=== PATIENT | male | born 1950 | race American Indian/Alaskan Native ===

== ENCOUNTER 2019-08-27 12:50 | Emergency (ER) | payer MEDICARE, OTHER ==
[2019-08-27] MEDS ORDERED: ALUM-MAG HYDROX-SIMETH 200-200-20MG/5ML PO STA (13:13)
[2019-08-27] MEDS ORDERED: LIDOCAINE VISCOUS 2% PO STA (13:13)
[2019-08-27] MEDS ORDERED: BANOPHEN PO STA (13:13)
--- NOTE | 2019-08-27 13:13 | Emergency Department Report ---
Blank Doc - Documentation Documentation: 69 y/o male c/o "chest fullness" associated with belching, heartburn and nausea. Discomfort radiates to back. he spoke to the ID medical advice line and was advised to come to the ER for evaluation. his initial assessment/diagnostic orders/clinical plan/treatment(s) is/are panchal bject to change based on patient's health status, clinical progression and re- assessment by fellow clinical providers in the ED. Further treatment and workup at subsequent clinical providers discretion. Patient/guardians urged not to elope from the ED as their condition may be serious if not clinically assessed and managed. Initial orders include: Labs, ekg and cxr. Gi cocktail
[2019-08-27] MEDS ORDERED: PEPCID PO ONE (13:32)
--- NOTE | 2019-08-27 13:33 | Emergency Department Report ---
ED Chest Pain HPI - General Chief Complaint: Chest Pain Stated Complaint: CHEST PAIN/BELCH ABNORMAL Time Seen by Provider: 08/27/19 13:11 Source: patient Mode of arrival: Ambulatory Limitations: No Limitations - History of Present Illness Initial Comments: 69 yo well appearing AA male to ER with co epigastric burning into chest for 24 hours. He states he has been belching alot and his OTC meds have not worked. He took an antacid. The pain is burning in nature. No diaphoresis or nausea. He has no sob. He is ambulating without SOB. PMH prostate enlargement htn previous smoker home meds lisinopril prostate meds omeprazole mom and dad dec ? cause years ago. psh colonoscopy 2 w ago- normal Pt has no hx CAD or CVA His usual care is from [place] - Related Data Home Medications Medication Instructions Recorded Confirmed Last Taken Finasteride 5 mg PO QDAY 08/27/19 08/27/19 08/23/19 Lisinopril [Zestril] 20 mg PO QDAY 08/27/19 08/27/19 08/23/19 Omeprazole 20 mg PO DAILY 08/27/19 08/27/19 08/26/19 20 Tamsulosin [Flomax] 0.4 mg PO QDAY 08/27/19 08/27/19 08/26/19 amLODIPine [Norvasc] 10 mg PO DAILY 08/27/19 08/27/19 08/26/19 Allergies Allergy/AdvReac Type Severity Reaction Status Date / Time No Known Allergies Allergy Verified 08/27/19 12:51 Heart Score - HEART Score History: Slightly suspicious EKG: Non-specific Age: > 65 Risk factors: 1-2 risk factors Troponin: < normal limit HEART Score: 4 ED Review of Systems ROS: Stated complaint: CHEST PAIN/BELCH ABNORMAL Other details as noted in HPI Comment: All other systems reviewed and negative ED Past Medical Hx - Past Medical History Hx Hypertension: Yes Hx CVA: No Hx Heart Attack/AMI: No Hx Congestive Heart Failure: No Hx Diabetes: No Hx Deep Vein Thrombosis: No Hx Pulmonary Embolism: No Hx GERD: Yes Hx Liver Disease: No Hx Renal Disease: No Hx of Cancer: No Hx Sickle Cell Disease: No Hx Arthritis: No Hx Headaches / Migraines: No Hx Seizures: No Hx Kidney Stones: No Hx Psychiatric Treatment: No Hx Asthma: No Hx COPD: No Hx Tuberculosis: No Hx Dementia: No Hx HIV: No Additional medical history: prostate - Surgical History Past Surgical History?: Yes Additional Surgical History: left groin hernia - Family History Family history: no significant, other (MOM AND DAD DEC UNKNOWN CAUSE) - Social History Smoking Status: Never Smoker Substance Use Type: None - Medications Home Medications: Home Medications Medication Instructions Recorded Confirmed Last Taken Type Finasteride 5 mg PO QDAY 08/27/19 08/27/19 08/23/19 History Lisinopril [Zestril] 20 mg PO QDAY 08/27/19 08/27/19 08/23/19 History Omeprazole 20 mg PO DAILY 08/27/19 08/27/19 08/26/19 History 20 Tamsulosin [Flomax] 0.4 mg PO QDAY 08/27/19 08/27/19 08/26/19 History amLODIPine [Norvasc] 10 mg PO DAILY 08/27/19 08/27/19 08/26/19 History ED Physical Exam - General Limitations: No Limitations General appearance: alert, in no apparent distress - Head Head exam: Present: atraumatic, normocephalic - Eye Eye exam: Present: normal appearance - ENT ENT exam: Present: mucous membranes moist - Neck Neck exam: Present: normal inspection - Respiratory Respiratory exam: Present: normal lung sounds bilaterally. Absent: respiratory distress - Cardiovascular Cardiovascular Exam: Present: regular rate, normal rhythm. Absent: systolic murmur, diastolic murmur, rubs, gallop - GI/Abdominal GI/Abdominal exam: Present: soft, normal bowel sounds - Rectal Rectal exam: Present: deferred - Extremities Exam Extremities exam: Present: normal inspection - Back Exam Back exam: Present: normal inspection - Neurological Exam Neurological exam: Present: alert, oriented X3 - Psychiatric Psychiatric exam: Present: normal affect, normal mood - Skin Skin exam: Present: warm, dry, intact, normal color. Absent: rash ED Course Vital Signs 08/27/19 08/27/19 08/27/19 13:13 15:00 15:30 Temperature 98.6 F Pulse Rate 92 H 75 69 Respiratory 18 20 18 Rate Blood Pressure 115/74 Blood Pressure 143/78 132/78 [Left] O2 Sat by Pulse 96 96 98 Oximetry 08/27/19 17:43 Temperature Pulse Rate 66 Respiratory 20 Rate Blood Pressure Blood Pressure 120/70 [Left] O2 Sat by Pulse 95 Oximetry CELSO score - Celso Score Age > 65: (1) Yes Aspirin use within the Past 7 Days: (0) No 3 or more CAD Risk Factors: (0) No 2 or more Angina events in past 24 hrs: (0) No Known CAD with more than 50% Stenosis: (0) No Elevated Cardiac Markers: (0) No ST Deviation Greater than 0.5mm: (0) No CELSO Score: 1 ED Medical Decision Making - Lab Data Result diagrams: 08/27/19 13:33 08/27/19 13:33 - EKG Data EKG shows normal: sinus rhythm Rate: normal - EKG Data When compared to previous EKG there are: no significant change Interpretation: unchanged when compared t, nonspecific ST-T wave erum - Radiology Data Radiology results: report reviewed, image reviewed - Medical Decision Making Lab Results 08/27/19 08/27/19 08/27/19 Range/Units 13:33 13:33 13:37 WBC 7.4 (4.5-11.0) K/mm3 RBC 4.67 (3.65-5.03) M/mm3 Hgb 14.3 (11.8-15.2) gm/dl Hct 43.1 (35.5-45.6) % MCV 92 (84-94) fl MCH 31 (28-32) pg MCHC 33 (32-34) % RDW 13.1 L (13.2-15.2) % Plt Count 194 (140-440) K/mm3 Lymph % (Auto) 4.6 L (13.4-35.0) % Warrick % (Auto) 6.0 (0.0-7.3) % Eos % (Auto) 0.1 (0.0-4.3) % Baso % (Auto) 0.2 (0.0-1.8) % Lymph # 0.3 L (1.2-5.4) K/mm3 Warrick # 0.4 (0.0-0.8) K/mm3 Eos # 0.0 (0.0-0.4) K/mm3 Baso # 0.0 (0.0-0.1) K/mm3 Seg Neutrophils % 89.1 H (40.0-70.0) % Seg Neutrophils # 6.6 (1.8-7.7) K/mm3 Sodium 142 (137-145) mmol/L Potassium 3.6 (3.6-5.0) mmol/L Chloride 100.1 (98-107) mmol/L Carbon Dioxide 28 (22-30) mmol/L Anion Gap 18 mmol/L BUN 20 (9-20) mg/dL Creatinine 1.1 (0.8-1.5) mg/dL Estimated GFR > 60 ml/min BUN/Creatinine Ratio 18 % Glucose 130 H (75-100) mg/dL Calcium 8.9 (8.4-10.2) mg/dL Total Bilirubin 0.60 (0.1-1.2) mg/dL AST 17 (5-40) units/L ALT 14 (7-56) units/L Alkaline Phosphatase 84 (35-129) units/L Total Creatine Kinase 111 (55-170) units/L Troponin T < 0.010 (0.00-0.029) ng/mL Total Protein 6.8 (6.3-8.2) g/dL Albumin 4.2 (3.9-5) g/dL Albumin/Globulin Ratio 1.6 % Lipase 9 L (13-60) units/L // Range/Units 16:27 WBC (4.5-11.0) K/mm3 RBC (3.65-5.03) M/mm3 Hgb (11.8-15.2) gm/dl Hct (35.5-45.6) % MCV (84-94) fl MCH (28-32) pg MCHC (32-34) % RDW (13.2-15.2) % Plt Count (140-440) K/mm3 Lymph % (Auto) (13.4-35.0) % Warrick % (Auto) (0.0-7.3) % Eos % (Auto) (0.0-4.3) % Baso % (Auto) (0.0-1.8) % Lymph # (1.2-5.4) K/mm3 Warrick # (0.0-0.8) K/mm3 Eos # (0.0-0.4) K/mm3 Baso # (0.0-0.1) K/mm3 Seg Neutrophils % (40.0-70.0) % Seg Neutrophils # (1.8-7.7) K/mm3 Sodium (137-145) mmol/L Potassium (3.6-5.0) mmol/L Chloride (98-107) mmol/L Carbon Dioxide (22-30) mmol/L Anion Gap mmol/L BUN (9-20) mg/dL Creatinine (0.8-1.5) mg/dL Estimated GFR ml/min BUN/Creatinine Ratio % Glucose (75-100) mg/dL Calcium (8.4-10.2) mg/dL Total Bilirubin (0.1-1.2) mg/dL AST (5-40) units/L ALT (7-56) units/L Alkaline Phosphatase (35-129) units/L Total Creatine Kinase (55-170) units/L Troponin T < 0.010 (0.00-0.029) ng/mL Total Protein (6.3-8.2) g/dL Albumin (3.9-5) g/dL Albumin/Globulin Ratio % Lipase (13-60) units/L Vital Signs 08/27/19 08/27/19 08/27/19 13:13 15:00 15:30 Temperature 98.6 F Pulse Rate 92 H 75 69 Respiratory 18 20 18 Rate Blood Pressure 115/74 Blood Pressure 143/78 132/78 [Left] O2 Sat by Pulse 96 96 98 Oximetry labs noted ekg x 2 no change trop x 2 negative pain completely gone with GI cocktail. pt taking po. ambulatory and non toxic on admission. pt dc home with follow up with [facility]- RN asked to fax chart for follow up. Pt will take his home PPI He verbalizes understanding of dc plan of care. - Differential Diagnosis ro acs/gerd Critical care attestation.: If time is entered above; I have spent that time in minutes in the direct care of this critically ill patient, excluding procedure time. ED Disposition Clinical Impression: GERD (gastroesophageal reflux disease), Atypical chest pain Disposition: DC-01 TO HOME OR SELFCARE Is pt being admited?: No Does the pt Need Aspirin: No Condition: Stable Instructions: Gastroesophageal Reflux Disease (ED) Additional Instructions: CONTINUE YOUR HOME MEDS INCLUDING YOUR OMEPRAZOLE BLAND DIET DRINK ALOT OF WATER AVOID MOTRIN/GOODYS AVOID ALCOHOL AVOID SPICY FOOD FOLLOW UP WITH PCP FOR RECHECK FOLLOW UP WITH [facility] FOR LOW RISK STRESS TEST Referrals: PRIMARY CARE, [Primary Care Provider] - 3-5 Days KATIE VALLADARES MD [Staff Physician] - 3-5 Days Time of Disposition: 17:05
[2019-08-27 13:50] LABS: Basophils % (Auto) 0.2 % (0.0-1.8); Eosinophils % (Auto) 0.1 % (0.0-4.3); Hematocrit 43.1 % (35.5-45.6); Hemoglobin 14.3 gm/dl (11.8-15.2); Lymphocytes # (Auto) 0.3 K/mm3 (1.2-5.4); Lymphocytes % (Auto) 4.6 % (13.4-35.0); Mean Corpuscular HGB Conc 33 % (32-34); Mean Corpuscular Volume 92 fl (84-94); Monocytes # (Auto) 0.4 K/mm3 (0.0-0.8); Platelet Count 194 K/mm3 (140-440); Red Blood Count 4.67 M/mm3 (3.65-5.03); Red Cell Distribution Width 13.1 % (13.2-15.2)
[2019-08-27 14:17] LABS: Alanine Aminotransferase 14 units/L (7-56); Albumin 4.2 g/dL (3.9-5); BUN/Creatinine Ratio 18; Blood Urea Nitrogen 20 mg/dL (9-20); Calcium 8.9 mg/dL (8.4-10.2); Hemolysis Index 8
--- NOTE | 2019-08-27 14:23 | XRay Report ---
CHEST 1 VIEW INDICATION: Chest Pain. COMPARISON: None. FINDINGS: Support devices: None. Heart: Within normal limits. Pulmonary vasculature: Mild central vascular congestion. Lungs/Pleura: Mild diffuse bilateral reticular interstitial opacities. No airspace disease. Mild righ t basal subsegmental atelectasis. No pleural effusion. Additional findings: None. IMPRESSION: 1. Mild central vascular congestion and bilateral interstitial opacities suggesting possible acute in terstitial pulmonary edema. Signer Name: David Patel MD Signed: 08/27/2019 2:19 PM Workstation Name: [id number]
[2019-08-27] MEDS ORDERED: IBUPROFEN PO ONE (15:47)
[2019-08-27 17:45] VITALS: BP 120/70
== END 2019-08-27 17:45 | disposition home or self-care (01) ==
LOC: ED 12:50
DX: K21.9 Gastro-esophageal reflux disease without esophagitis (principal); R07.89 Other chest pain; I10 Essential (primary) hypertension
CPT/HCPCS: 36415; 71045; 80053; 82550; 83690; 84484; 85025; 93005; 93010